=== PATIENT | male | born 1985 | race Caucasian/White ===

== ENCOUNTER 2021-08-22 11:46 | Emergency (ER) | payer OTHER ==
[2021-08-22 12:59] LABS: BILIRUBIN NEGATIVE (NEGATIVE); BLOOD NEGATIVE Ery/uL (NEGATIVE); CLARITY CLEAR (CLEAR); COLOR YELLOW (YELLOW); GLUCOSE (U) 2+ mg/dL (NORMAL); LEUKOCYTES NEGATIVE Leu/uL (NEGATIVE); NITRITE NEGATIVE (NEGATIVE); PROTEIN TRACE (LOW) mg/dL (NEGATIVE); SPECIFIC GRAVITY 1.025 (1.001-1.030)
[2021-08-22 12:59] LABS: BASOPHIL 0.7 % (0-2); EOSINOPHIL 1.9 % (0-5); HCT 43.6 % (42.0-52.0); HGB 13.3 g/dl (13.2-18.0); LYMPHOCYTE 16.6 % (15-48); MCH 23.9 pg (25.0-31.0); MCHC 30.5 g/dL (32.0-36.0); MCV 78.3 fL (78.0-100.0); MPV 9.4 fL (6.0-9.5); NEUTROPHIL 74.4 % (41-80); NRBC 0; PLT 345 K/uL (150-400); RBC 5.57 M/uL (4.70-6.00); RDW 18.5 % (11.5-14.0); WBC 8.5 K/uL (4.0-10.5)
[2021-08-22 13:21] LABS: MUCOUS LARGE; SQUAMOUS EPITHELIAL CELLS RARE; URINARY WBC RARE
[2021-08-22 13:37] LABS: CORONAVIRUS 2019 SARS-COV-2 NEGATIVE (NEGATIVE); INFLUENZA A NAA NEGATIVE (NEGATIVE)
[2021-08-22 13:47] LABS: CREATININE 0.77 mg/dL (0.67-1.17)
[2021-08-22 13:48] LABS: ALBUMIN 3.7 g/dL (3.4-5.0); BILIRUBIN - TOTAL 0.4 mg/dL (0.2-1.0); GLOBULIN (CALCULATION) 4.2 g/dL; POTASSIUM 3.9 mmol/L (3.5-5.1); TOTAL PROTEIN 7.9 g/dL (6.4-8.2)
[2021-08-22] MEDS ORDERED: SUDAFED30 MG PO (14:14)
[2021-08-22] MEDS ORDERED: ONDANSETRON ODT4 MG PO (14:14)
== END 2021-08-22 14:43 | disposition home or self-care (01) ==
LOC: EDBD 11:46 → FER 11:46
PROVIDERS: Emergency Medicine; Physician Assistant
DX: B34.9 Viral infection, unspecified (principal); R79.89 Other specified abnormal findings of blood chemistry; F17.210 Nicotine dependence, cigarettes, uncomplicated; Z28.310 Unvaccinated for COVID-19; Z20.822 Contact with and (suspected) exposure to COVID-19
CPT/HCPCS: 36415; 80053; 81001; 83690; 85025; 99284; U0002